=== PATIENT | female | born 1970 | race Caucasian/White ===

== ENCOUNTER → 2016-12-03 | Outpatient (CLI) | payer BC ==
[~2016-12-03] MED LIST: FAMO20TA38 PO; LOSA100T6 PO; METF750T2 PO
--- NOTE | 2016-12-03 09:44 | RAD ---
Left calcaneus, 2 views, 12/03/2016: History: Heel pain No fracture or destructive bony lesion is seen. There is a small inferior calcaneal spur. There is moderate subcutaneous edema along the plantar aspect of the heel. IMPRESSION: 1. Inferior calcaneal spur. 2. No acute bony abnormality is detected.
== END | disposition home or self-care (01) ==
LOC: DXRADRC 09:31
PROVIDERS: ATTEND Nurse Practitioner Family
DX: M77.32 Calcaneal spur, left foot (principal)
CPT/HCPCS: 73650

== ENCOUNTER 2019-04-22 01:25 | Emergency (ER) | payer BC ==
[~2019-04-22] VITALS: Ht 157.5 cm; Wt 99.1 kg
[~2019-04-22 01:25] MED LIST changes: +LOSA100T14 PO; -LOSA100T6 PO; -METF750T2 PO; +METF750T39 PO
[2019-04-22] MEDS ORDERED: FAMOTIDINE 20 MG/2 ML VIAL ONE (01:42)
[2019-04-22] MEDS ORDERED: methylPREDNISolone SOD SUCC PF 125 MG/2 ML VIAL. ONE (01:42)
[2019-04-22] MEDS ORDERED: ALBUTEROL SULFATE 8GM INHALER. ONE (01:43)
[2019-04-22] MEDS ORDERED: ALBUTEROL SULFATE 8GM INHALER. INH ONE (01:45)
[2019-04-22] MEDS ORDERED: IPRATRPIUM/ALBUTEROL 0.5/2.5MG 3 ML NEBU. NEB ONE (01:45)
[2019-04-22] MEDS ORDERED: PRED50TA PO (01:48)
[2019-04-22] MEDS ORDERED: RANI-376 PO (01:48)
--- NOTE | 2019-04-22 01:50 | ED.ADGEN ---
Adult General Chief Complaint Chief Complaint "This allergic reaction started this morning.. it woke me up.. I am itching all over.. only other time this happen was when I had an allergic reaction to sulfa.. " HPI HPI Patient is a 49 year old female who presents with diffuse allergic reaction. Pt. has erythema and itching over her entire body. Pt. had taken some benadryl at home. Patient denies any new soaps ,sprays, hygiene products, foods, antibiotics, or other exposures. Patient is under stress father recently , and did ingest food products brought for the . No recent travel. No history immunosuppression. No specific ill contacts. Patient did eat some salad bar fruit presentation. Review of Systems Review of Systems Constitutional: Denies fever or chills [] Eyes: Denies change in visual acuity, redness, or eye pain [] HENT: Denies nasal congestion or sore throat [] Respiratory: Denies cough or shortness of breath [] Cardiovascular: No additional information not addressed in HPI [] GI: Denies abdominal pain, nausea, vomiting, bloody stools or diarrhea [] : Denies dysuria or hematuria [] Musculoskeletal: Denies back pain or joint pain [] Integument: Complains of diffuse erythemic rash and itching Neurologic: Denies headache, focal weakness or sensory changes [] Endocrine: Denies polyuria or polydipsia [] All other systems were reviewed and found to be within normal limits, except as documented in this note. Family History Family History Noncontributory Current Medications Current Medications Current Medications Medications (Trade) Dose Ordered Sig/Katerin Start Time Stop Time Status Last Admin Dose Admin Albuterol Sulfate (Ventolin Hfa Inhaler) 2 puff 1X ONCE 04/22/19 01:45 04/22/19 01:53 DC 04/22/19 01:47 2 PUFF Albuterol/ Ipratropium (Duoneb) 3 ml 1X ONCE 04/22/19 01:45 04/22/19 01:54 DC 04/22/19 01:53 3 ML Famotidine (Pepcid Vial) 20 mg 1X ONCE 04/22/19 02:00 04/22/19 02:01 DC 04/22/19 01:57 20 MG Magnesium Hydroxide (Milk Of Magnesia) 2,400 mg 1X ONCE 04/22/19 02:00 04/22/19 02:01 DC 04/22/19 01:57 2,400 MG Methylprednisolone Sodium Succinate (SOLU-Medrol 125MG VIAL) 125 mg 1X ONCE 04/22/19 02:00 04/22/19 02:01 DC 04/22/19 01:57 125 MG Allergies Allergies Allergies Coded Allergies Type Severity Reaction Last Updated Verified Sulfa (Sulfonamide Antibiotics) Allergy Severe Hives 05/28/16 Yes Physical Exam Physical Exam Constitutional: Well developed, well nourished, moderately acute distress, non- toxic appearance. [] HENT: Normocephalic, atraumatic, bilateral external ears normal, oropharynx moist, no oral exudates, nose slightly swollen turbinates with clear rhinorrhea Eyes: PERRLA, EOMI, conjunctiva normal, no discharge. [] Neck: Normal range of motion, no tenderness, supple, no stridor. [] Cardiovascular:Heart rate regular rhythm, no murmur [] Lungs & Thorax: Bilateral breath sounds equal at apexes with a few scattered wheezes on auscultation [] Abdomen: Bowel sounds normal, soft, no tenderness, no masses, no pulsatile masses. [] Obese Skin: erythema, rash. [] Back: No tenderness, no CVA tenderness. [] Extremities: No tenderness, no cyanosis, no clubbing, ROM intact, no edema. [] Neurologic: Alert and oriented X 3, normal motor function, normal sensory function, no focal deficits noted. [] Psychologic: Affect anxious, judgement normal, mood normal. [] Current Patient Data Vital Signs Vital Signs Date Time Temp Pulse Resp B/P (MAP) Pulse Ox O2 Delivery O2 Flow Rate FiO2 04/22/19 02:21 100 20 148/87 (107) 98 Room Air 04/22/19 02:02 98.5 EKG EKG [] Radiology/Procedures Radiology/Procedures [] Course & Med Decision Making Course & Med Decision Making Pertinent Labs and Imaging studies reviewed. (See chart for details) Patient uses MDI 2 puffs 4 times a day. Patient take prednisone 50 mg a day. Patient take Zantac 150 mg twice day for 10 days. Patient take Benadryl 25-50 mg 4 times a day. Patient return if any concerns. Patient attempt to identify cause allergic reaction. [] Final Impression Final Impression 1. Allergic reaction[] Dragon Disclaimer Dragon Disclaimer This electronic medical record was generated, in whole or in part, using a voice recognition dictation system. Dragon Disclaimer This chart was dictated in whole or in part using Voice Recognition software in a busy, high-work load, and often noisy Emergency Department environment. It may contain unintended and wholly unrecognized errors or omissions. Dragon Disclaimer This chart was dictated in whole or in part using Voice Recognition software in a busy, high-work load, and often noisy Emergency Department environment. It may contain unintended and wholly unrecognized errors or omissions. BILL DYSON MD Apr 22, 2019 01:50
[2019-04-22] MEDS ORDERED: FAMOTIDINE 20 MG/2 ML VIAL IVP ONE (02:00)
[2019-04-22] MEDS ORDERED: methylPREDNISolone SOD SUCC PF 125 MG/2 ML VIAL. IV ONE (02:00)
[2019-04-22] MEDS ORDERED: MAGNESIUM HYDROXIDE 2,400 MG/30 ML ORAL.SUSP. PO ONE (02:00)
[2019-04-22 02:21] VITALS: BP 148/87
== END 2019-04-22 02:29 | disposition home or self-care (01) ==
LOC: ER 01:25
DX: T78.49XA Other allergy, initial encounter (principal); Z88.2 Allergy status to sulfonamides; X58.XXXA Exposure to other specified factors, initial encounter
CPT/HCPCS: 94640; 96374; 96375; 99284; J2930; J3490; J7613; J7620